=== PATIENT | female | born 1995 | race Caucasian/White ===

== ENCOUNTER 2017-02-20 13:10 | Emergency (ER) | payer MEDICAID ==
[2017-02-20 13:23] VITALS: BP 133/68
[2017-02-20] MEDS ORDERED: Ondansetron 4 MG/2 ML SDV IVPUSH STA (13:53)
[2017-02-20] MEDS ORDERED: Sodium Chloride 0.9% 1,000 ML IV ONE (13:53)
[2017-02-20 14:22] LABS: CHLORIDE,CL 104 mEq/L (98-106); SODIUM,NA 141 mEq/L (136-145)
--- NOTE | 2017-02-20 14:35 | EDM.PDOC ---
ED HPI GENERAL MEDICAL PROBLEM - General Chief Complaint: General Stated Complaint: back pain, leg pain Time Seen by Provider: 02/20/17 13:36 Source of Information: Reports: Patient History Limitations: Reports: No limitations - History of Present Illness INITIAL COMMENTS - FREE TEXT/NARRATIVE: This patient is a 21 year old female that presents to the ER. Patient reports that since Thursday she has had RLE pain in her calf, abdominal pain, back pain, mild chest pain, lightheadedness, dysuria. Patient reports that she is about 2 weeks post vaginal delivery without complications. She reports that she saw her IMPORT CLERK about 1 week ago and was having vaginal bleeding with clots so was put on a medication to help slow this down. Patient reports that this medication has helped, she is still having bleeding, but has significantly decreased. Patient reports her next appointment with her OB is in March. Patient reports she called her OB and was instructed to come to the ER to be evaluated for a possible blood clot. The patient does not appear to be in acute distress. She is sitting up in the stretcher, talking in complete and full sentences without any difficulty. She denies escalante, soa, v, d, f, pelvic pain. Onset Date: 02/16/17 Duration: Day(s): (4) Location: Reports: chest, back, lower extremity, right Quality: Reports: Ache Severity: mild Improves with: Reports: None Worsens with: Reports: None Associated Symptoms: Reports: chest pain, nausea/vomiting, shortness of breath. Denies: confusion, cough, cough w sputum, diaphoresis, fever/chills, headaches , loss of appetite, malaise, rash, seizure, syncope, weakness Back Pain Score (Numeric/FACES): 8 Right Leg Pain Score (Numeric/FACES): 5 - Related Data Allergies Allergy/AdvReac Type Severity Reaction Status Date / Time clindamycin Allergy Mild Stomach Verified 02/20/17 13:23 Ache amoxicillin trihydrate Allergy Stomach Verified 02/20/17 13:23 [From Augmentin] Ache ciprofloxacin [From Cipro] Allergy Vomiting Verified 02/20/17 13:23 ciprofloxacin HCl Allergy Vomiting Verified 02/20/17 13:23 [From Cipro] metronidazole Allergy Nausea Verified 02/20/17 13:23 potassium clavulanate Allergy Stomach Verified 02/20/17 13:23 [From Augmentin] Ache sulfamethoxazole Allergy Vomiting Verified 02/20/17 13:23 [From Bactrim] trimethoprim [From Bactrim] Allergy Vomiting Verified 02/20/17 13:23 doxycycline AdvReac Vomiting Verified 02/20/17 13:23 doxycycline calcium AdvReac Vomiting Verified 02/20/17 13:23 [From Vibramycin] doxycycline hyclate AdvReac Vomiting Verified 02/20/17 13:23 [From Vibramycin] doxycycline monohydrate AdvReac Vomiting Verified 02/20/17 13:23 [From Vibramycin] Home Meds: Home Meds Ferrous Sulfate 1 tab PO DAILY 12/06/16 [History] Vit with Ca/FA/Iron [ Plus Iron] 1 tab PO DAILY 12/06/16 [ History] Acetaminophen [Tylenol] 650 mg PO Q6H PRN #0 tablet 02/10/17 [Rx] Ibuprofen [IJD: Ibuprofen] 600 mg PO Q8H PRN #30 tablet 02/10/17 [Rx] Citalopram Hydrobromide [Celexa] 10 mg PO DAILY 02/20/17 [History] Past Medical History - Past Health History Medical/Surgical History: Denies Medical/Surgical History Other HEENT History: tonsilitis Gastrointestinal History: Reports: Chronic constipation, Hemorrhoids Other Gastrointestinal History: fissures IMPORT CLERK History: Reports: , Other (see below) Other OB/BYN History: Hx ovarian cysts, recent of boy on 02/08/17 Musculoskeletal History: Reports: RA Other Musculoskeletal History: juvenile RA Psychiatric History: Reports: Depression Other Endocrine/Metabolic History: prediabetic Hematologic History: Reports: Anemia Dermatologic History: Reports: Eczema Other Dermatologic History: dermatitis - Infectious Disease History Infectious Disease History: Reports: Chicken pox Social & Family History - Family History Family Medical History: Noncontributory - Tobacco Use Smoking Status *Q: Never Smoker Years of Tobacco use: 2 Packs/Tins Daily: 0.5 Used Tobacco, but Quit: No Month Tobacco Last Used: QUIT 2 YEARS AGO Second Hand Smoke Exposure: No - Caffeine Use Caffeine Use: Reports: None - Alcohol Use Days Per Week of Alcohol Use: 0 Number of Drinks Per Day: 1 Total Drinks Per Week: 0 - Recreational Drug Use Recreational Drug Use: No - Living Situation & Occupation Living situation: Reports: with family, single Occupation: employed ([employer]) ED ROS GENERAL - Review of Systems Review Of Systems: See Below Constitutional: Reports: no symptoms HEENT: Reports: No symptoms Respiratory: Reports: No Symptoms Cardiovascular: Reports: Chest pain, Lightheadedness Endocrine: Reports: no symptoms GI/Abdominal: Reports: Nausea : Reports: dysuria, other (back pain) Musculoskeletal: Reports: no symptoms Skin: Reports: no symptoms Neurological: Reports: No Symptoms Psychiatric: Reports: No symptoms Hematologic/Lymphatic: Reports: no symptoms Immunologic: Reports: no symptoms ED EXAM, GENERAL - Physical Exam Exam: See Below Exam Limited By: No limitations General Appearance: alert, WD/WN, no apparent distress Eye Exam: bilateral eye: normal inspection, PERRL Ears: normal external exam, normal canal, hearing grossly normal, normal TMs Ear Exam: bilateral ear: auricle normal, canal normal, TM normal Nose: normal inspection, normal mucosa, no blood Throat/Mouth: Normal inspection, Normal lips, Normal teeth, Normal gums, Normal oropharynx, Normal voice, No airway compromise Head: atraumatic, normocephalic Neck: normal inspection, supple, non-tender, full range of motion Respiratory/Chest: no respiratory distress, lungs clear, normal breath sounds, no accessory muscle use, chest non-tender (RN Dalia at bedside. ) Cardiovascular: normal peripheral pulses, regular rate, rhythm, no edema, no gallop, no JVD, no murmur, no rub Peripheral Pulses: 2+: radial (L), radial (R), posterior tibial (L), posterior tibial (R), dorsalis pedis (L), dorsalis pedis (R) GI/Abdominal: soft, no organomegaly, no distention, tender (mildly difuse, reports still from delivery. No new changes or worsening. Actually improving per patient.) Back Exam: normal inspection, full range of motion, CVA tenderness (L), CVA tenderness (R) Extremities: normal inspection, normal range of motion, non-tender, no pedal edema, normal capillary refill Neurological: alert, oriented Psychiatric: normal affect, normal mood Skin Exam: Warm, Dry, Intact, Normal color, No rash Lymphatic: no adenopathy Course - Vital Signs Last Recorded V/S: Last Vital Signs Temp 98.5 F 02/20/17 13:15 Pulse 59 L 02/20/17 13:15 Resp 20 02/20/17 13:15 BP 133/68 02/20/17 13:15 Pulse Ox 97 02/20/17 13:15 - Orders/Labs/Meds Orders: Active Orders 24 hr Category Date Time Status Ang Chest [CT] Stat Exams 02/20/17 15:02 Taken VL Duplex Lwr Ext Veins Ltd Rt [US] Stat Exams 02/20/17 13:52 Taken Labs: Laboratory Tests 02/20/17 02/20/17 02/20/17 Range/Units 13:52 13:52 14:00 WBC 14.8 H (5.0-10.0) 10^3/uL RBC 4.18 (4.00-5.50) 10^6/uL Hgb 12.5 (12.0-16.0) g/dL Hct 38.4 (37.0-47.0) % MCV 91.9 (82.0-94.0) fL MCH 29.9 (27.0-32.0) pg MCHC 32.6 L (33.0-38.0) g/dL RDW Coeff of Kike 12.6 (11.0-15.0) % Plt Count 465 H (150-400) 10^3/uL Neut % (Auto) 65.3 (35-85) % Lymph % (Auto) 27.4 (10-55) % [place] % (Auto) 5.3 (0-16) % Eos % (Auto) 1.8 (0-5) % Baso % (Auto) 0.2 (0-3) % Neut # (Auto) 9.65 H (1.80-7.00) 10^3/uL Lymph # (Auto) 4.04 (1.00-4.80) 10^3/uL [place] # (Auto) 0.78 (0.00-0.80) 10^3/uL Eos # (Auto) 0.27 (0.00-0.45) 10^3/uL Baso # (Auto) 0.03 10^3/uL D-Dimer, Quantitative 0.58 H (0.00-0.50) Sodium 141 (136-145) mEq/L Potassium 4.0 (3.5-5.0) mEq/L Chloride 104 (98-106) mEq/L Carbon Dioxide 26 (21-32) mmol/L BUN 11 D (7-18) mg/dL Creatinine 0.7 (0.6-1.0) mg/dL Est Cr Clr Drug Dosing 118.01 mL/min Estimated GFR (MDRD) > 60 (>=60) mL/min Glucose 86 (75-99) mg/dL Calcium 9.3 (8.4-10.1) mg/dL Total Bilirubin 0.3 (0.0-1.0) mg/dL AST 14 L (15-37) U/L ALT 18 (12-78) U/L Alkaline Phosphatase 131 H (46-116) U/L Total Protein 7.2 (6.4-8.2) g/dL Albumin 3.5 (3.4-5.0) g/dL Urine Color (YELLOW) Urine Appearance (CLEAR) Urine pH (4.5-8.0) Ur Specific [place] (1.003-1.020) Urine Protein (NEGATIVE) mg/dL Urine Glucose (UA) (NEGATIVE) mg/dL Urine Ketones (NEGATIVE) mg/dL Urine Occult Blood (NEGATIVE) Urine Nitrite (NEGATIVE) Urine Bilirubin (NEGATIVE) Urine Urobilinogen (0.2-1.0) EU/dL Ur Leukocyte Esterase (NEGATIVE) Urine RBC (0-5) /HPF Urine WBC (0-5) /HPF Ur Squamous Epith Cells (NOT SEEN) /HPF Urine Bacteria (NOT SEEN) /HPF 02/20/17 Range/Units 14:00 WBC (5.0-10.0) 10^3/uL RBC (4.00-5.50) 10^6/uL Hgb (12.0-16.0) g/dL Hct (37.0-47.0) % MCV (82.0-94.0) fL MCH (27.0-32.0) pg MCHC (33.0-38.0) g/dL RDW Coeff of Kike (11.0-15.0) % Plt Count (150-400) 10^3/uL Neut % (Auto) (35-85) % Lymph % (Auto) (10-55) % [place] % (Auto) (0-16) % Eos % (Auto) (0-5) % Baso % (Auto) (0-3) % Neut # (Auto) (1.80-7.00) 10^3/uL Lymph # (Auto) (1.00-4.80) 10^3/uL [place] # (Auto) (0.00-0.80) 10^3/uL Eos # (Auto) (0.00-0.45) 10^3/uL Baso # (Auto) 10^3/uL D-Dimer, Quantitative (0.00-0.50) Sodium (136-145) mEq/L Potassium (3.5-5.0) mEq/L Chloride (98-106) mEq/L Carbon Dioxide (21-32) mmol/L BUN (7-18) mg/dL Creatinine (0.6-1.0) mg/dL Est Cr Clr Drug Dosing mL/min Estimated GFR (MDRD) (>=60) mL/min Glucose (75-99) mg/dL Calcium (8.4-10.1) mg/dL Total Bilirubin (0.0-1.0) mg/dL AST (15-37) U/L ALT (12-78) U/L Alkaline Phosphatase (46-116) U/L Total Protein (6.4-8.2) g/dL Albumin (3.4-5.0) g/dL Urine Color Light yellow (YELLOW) Urine Appearance Clear (CLEAR) Urine pH 7.0 (4.5-8.0) Ur Specific [place] 1.011 (1.003-1.020) Urine Protein Negative (NEGATIVE) mg/dL Urine Glucose (UA) Negative (NEGATIVE) mg/dL Urine Ketones Negative (NEGATIVE) mg/dL Urine Occult Blood Small H (NEGATIVE) Urine Nitrite Negative (NEGATIVE) Urine Bilirubin Negative (NEGATIVE) Urine Urobilinogen 0.2 (0.2-1.0) EU/dL Ur Leukocyte Esterase Moderate H (NEGATIVE) Urine RBC 5-10 H (0-5) /HPF Urine WBC 5-10 H (0-5) /HPF Ur Squamous Epith Cells Few H (NOT SEEN) /HPF Urine Bacteria Occasional H (NOT SEEN) /HPF Meds: Medications Discontinued Medications Generic Name Dose Route Start Last Admin Trade Name Freq PRN Reason Stop Dose Admin Ceftriaxone Sodium 1 gm 02/20/17 15:05 02/20/17 15:55 Rocephin IVPUSH 02/20/17 15:06 1 gm ONETIME ONE Administration Sodium Chloride 1,000 mls @ 1,000 mls/hr 02/20/17 13:53 02/20/17 14:30 Normal Saline IV 02/20/17 14:52 1,000 mls/hr .BOLUS ONE Administration Ondansetron HCl 4 mg 02/20/17 13:53 02/20/17 14:25 Zofran IVPUSH 02/20/17 13:54 4 mg NOW STA Administration - Radiology Interpretation Free Text/Narrative:: CT Angio Chest: No PEs, negative per radiologist. Venous Right leg: No DVT. CT Results Date: 02/20/17 CT Results Time: 17:00 Departure - Departure Time of Disposition: 17:19 Disposition: Home, Self-Care 01 Condition: good Clinical Impression: UTI, Urinary tract infectious disease Instructions: Urinary Tract Infection, Adult Referrals: Leeanne Mendez MD [Primary Care Provider] - Forms: ED Department Discharge Additional Instructions: Followup with your primary care provider and IMPORT CLERK Return to the ER for worsening of condition or any emergent concerns Increase fluids Macrobid 100mg 1 pill twice a day for 7 days #14 no refill - My Orders Last 24 Hours: My Active Orders 02/20/17 13:52 VL Duplex Lwr Ext Veins Ltd Rt [US] Stat 02/20/17 15:02 Ang Chest [CT] Stat - Assessment/Plan Last 24 Hours: My Active Orders 02/20/17 13:52 VL Duplex Lwr Ext Veins Ltd Rt [US] Stat 02/20/17 15:02 Ang Chest [CT] Stat Plan: PLEASE SEE RN NOTE FOR PFSH.
[2017-02-20] MEDS ORDERED: cefTRIAXone 1 GM Vial IVPUSH ONE (15:05)
== END 2017-02-20 17:35 | disposition home or self-care (01) ==
LOC: CC.ED 13:10
DX: N39.0 Urinary tract infection, site not specified (principal); F32.9 Major depressive disorder, single episode, unspecified; Z88.1 Allergy status to other antibiotic agents; Z88.8 Allergy status to other drugs, medicaments and biological substances; Z88.2 Allergy status to sulfonamides; Z79.899 Other long term (current) drug therapy
CPT/HCPCS: 36415; 71275; 80053; 81001; 85025; 85379; 93971; 96361; 96374; 96375; 99284; J0696; J2405; J7030; Q9967

== ENCOUNTER 2017-06-10 20:39 | Emergency (ER) | payer MEDICAID ==
[2017-06-10 20:46] VITALS: BP 140/76
--- NOTE | 2017-06-10 20:50 | EDM.PDOC ---
ED HPI GENERAL MEDICAL PROBLEM - General Chief Complaint: Lower Extremity Injury/Pain Stated Complaint: R ankle injury Time Seen by Provider: 06/10/17 20:40 Source of Information: Reports: Patient History Limitations: Reports: No Limitations - History of Present Illness INITIAL COMMENTS - FREE TEXT/NARRATIVE: Pt was walking and stepped off a ledge and felt her right ankle pop. Hasn't been able to bear weight on it since. Pain is in foot and into the right ankle laterally. DId have it wrapped when coming in. Mild swelling noted at this time. able to move toes but does cause pain. No open area noted. No bruising at this time. Onset: Sudden Location: Reports: Lower Extremity, Right Quality: Reports: Sharp, Throbbing Worsens with: Reports: Movement Associated Symptoms: Reports: No Other Symptoms Right Ankle Pain Score (Numeric/FACES): 9 - Related Data Allergies Allergy/AdvReac Type Severity Reaction Status Date / Time clindamycin Allergy Mild Stomach Verified 06/10/17 20:41 Ache amoxicillin trihydrate Allergy Stomach Verified 06/10/17 20:41 [From Augmentin] Ache ciprofloxacin [From Cipro] Allergy Vomiting Verified 06/10/17 20:41 ciprofloxacin HCl Allergy Vomiting Verified 06/10/17 20:41 [From Cipro] metronidazole Allergy Nausea Verified 06/10/17 20:41 potassium clavulanate Allergy Stomach Verified 06/10/17 20:41 [From Augmentin] Ache sulfamethoxazole Allergy Vomiting Verified 06/10/17 20:41 [From Bactrim] trimethoprim [From Bactrim] Allergy Vomiting Verified 06/10/17 20:41 doxycycline AdvReac Vomiting Verified 06/10/17 20:41 doxycycline calcium AdvReac Vomiting Verified 06/10/17 20:41 [From Vibramycin] doxycycline hyclate AdvReac Vomiting Verified 06/10/17 20:41 [From Vibramycin] doxycycline monohydrate AdvReac Vomiting Verified 06/10/17 20:41 [From Vibramycin] Home Meds: Home Meds Ferrous Sulfate 1 tab PO DAILY 12/06/16 [History] Vit with Ca/FA/Iron [ Plus Iron] 1 tab PO DAILY 12/06/16 [ History] Acetaminophen [Tylenol] 650 mg PO Q6H PRN #0 tablet 02/10/17 [Rx] Ibuprofen [IJD: Ibuprofen] 600 mg PO Q8H PRN #30 tablet 02/10/17 [Rx] Citalopram Hydrobromide [Celexa] 10 mg PO DAILY 02/20/17 [History] Past Medical History - Past Health History Medical/Surgical History: Denies Medical/Surgical History Other HEENT History: tonsilitis Gastrointestinal History: Reports: Chronic Constipation, Hemorrhoids Other Gastrointestinal History: fissures [employer]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: , Other (See Below) Other OB/BYN History: Hx ovarian cysts, recent of boy on 02/08/17 Musculoskeletal History: Reports: RA Other Musculoskeletal History: juvenile RA Psychiatric History: Reports: Depression Other Endocrine/Metabolic History: prediabetic Hematologic History: Reports: Anemia Dermatologic History: Reports: Eczema Other Dermatologic History: dermatitis - Infectious Disease History Infectious Disease History: Reports: Chicken Pox Social & Family History - Family History Family Medical History: Noncontributory - Tobacco Use Smoking Status *Q: Never Smoker Years of Tobacco use: 2 Packs/Tins Daily: 0.5 Used Tobacco, but Quit: No Month Tobacco Last Used: QUIT 2 YEARS AGO Second Hand Smoke Exposure: No - Caffeine Use Caffeine Use: Reports: None - Alcohol Use Days Per Week of Alcohol Use: 0 Number of Drinks Per Day: 1 Total Drinks Per Week: 0 - Recreational Drug Use Recreational Drug Use: No - Living Situation & Occupation Living situation: Reports: with Family, Single Occupation: Employed Review of Systems - Review of Systems Review Of Systems: See Below Constitutional: Reports: No Symptoms Musculoskeletal: Reports: Leg Pain, Foot Pain Skin: Denies: Bruising, Wound ED EXAM, GENERAL - Physical Exam Exam: See Below Exam Limited By: No Limitations General Appearance: Alert, WD/WN, Moderate Distress Peripheral Pulses: 4+: Posterior Tibial (R), Dorsalis Pedis (R) Extremities: No Pedal Edema, Other (Has increase in pain with any movement. ) Course - Vital Signs Last Recorded V/S: Last Vital Signs Temp 96.3 F 06/10/17 20:42 Pulse 90 06/10/17 20:42 Resp 18 06/10/17 20:42 BP 140/76 06/10/17 20:42 Pulse Ox 97 06/10/17 20:42 - Orders/Labs/Meds Orders: Active Orders 24 hr Category Date Time Status Ankle Min 3V Rt [CR] Stat Exams 06/10/17 20:41 Ordered - Re-Assessments/Exams Free Text/Narrative Re-Assessment/Exam: 06/10/17 21:09 xray results discussed with pt as no acute fracture or dislocation noted. Departure - Departure Time of Disposition: 21:09 Disposition: Home, Self-Care 01 Condition: Good Clinical Impression: Right ankle sprain Qualifiers: Encounter type: initial encounter Involved ligament of ankle: unspecified ligament Qualified Code(s): S93.401A - Sprain of unspecified ligament of right ankle, initial encounter - Discharge Information Instructions: Ankle Sprain, [id number] Forms: ED Department Discharge Additional Instructions: Wear air cast for comfort and to help immobilize it . Wear sock under the air cast so the skin doesn't get irritated Ice to the area. elevate ankle to help with swelling Tylenol or advil to help with pain - Problem List & Annotations (1) Right ankle sprain SNOMED Code(s): 99909716 Code(s): S93.401A - SPRAIN OF UNSPECIFIED LIGAMENT OF RIGHT ANKLE, INIT ENCNTR Status: Acute Priority: High Current Visit: Yes Qualifiers: Encounter type: initial encounter Involved ligament of ankle: unspecified ligament Qualified Code(s): S93.401A - Sprain of unspecified ligament of right ankle, initial encounter - Problem List Review Problem List Initiated/Reviewed/Updated: Yes - My Orders Last 24 Hours: My Active Orders 06/10/17 20:41 Ankle Min 3V Rt [CR] Stat - Assessment/Plan Last 24 Hours: My Active Orders 06/10/17 20:41 Ankle Min 3V Rt [CR] Stat
== END 2017-06-10 21:25 | disposition home or self-care (01) ==
LOC: CC.ED 20:39
DX: S93.401A Sprain of unspecified ligament of right ankle, initial encounter (principal); M06.9 Rheumatoid arthritis, unspecified; D64.9 Anemia, unspecified; Z88.1 Allergy status to other antibiotic agents; Z88.8 Allergy status to other drugs, medicaments and biological substances; Z88.2 Allergy status to sulfonamides; Z79.899 Other long term (current) drug therapy; X50.9XXA Other and unspecified overexertion or strenuous movements or postures, initial encounter
CPT/HCPCS: 73610-RT; 99283

== ENCOUNTER 2017-11-07 14:30 | Emergency (ER) | payer MEDICAID ==
[2017-11-07] MEDS ORDERED: Cefuroxime 250 MG Tab PO ONE (14:31)
[2017-11-07] MEDS ORDERED: predniSONE 20 MG Tab PO ONE (14:31)
[2017-11-07 14:36] VITALS: BP 137/61
--- NOTE | 2017-11-07 14:43 | EDM.PDOC ---
ED HPI GENERAL MEDICAL PROBLEM - General Chief Complaint: General Stated Complaint: body aches, cough, fever Time Seen by Provider: 11/07/17 14:37 Source of Information: Reports: Patient History Limitations: Reports: No Limitations - History of Present Illness INITIAL COMMENTS - FREE TEXT/NARRATIVE: Rand is a 22 year old female who presents to the clinic with complaints of body aches and cough. She reports a productive cough of green phlegm. She reports she first started feeling ill on . She reports that she feels "like her muscles are going to rip apart." Reports her body aches have worsened. Does not report fever at home, however she is 99.9 deg F in ED. Denies any chest pain, shortness of breath. Does report fatigue. She reports she has been eating and drinking ok. Does have sick family members at home as well. Has been taking OTC cold medications and Tylenol without relief. Onset Date: 11/05/17 Duration: Getting Worse Location: Reports: Chest, Generalized Quality: Reports: Ache Associated Symptoms: Reports: Cough, cough w sputum, Headaches, Weakness. Denies: Confusion, Chest Pain, Diaphoresis, Fever/Chills, Loss of Appetite, Malaise, Nausea/Vomiting, Rash, Seizure, Shortness of Breath, Syncope Treatments BURR PICKER: Reports: Acetaminophen, Other Medication(s) (decongestants) Generalized Pain Score (Numeric/FACES): 3 - Related Data Allergies Allergy/AdvReac Type Severity Reaction Status Date / Time clindamycin Allergy Mild Stomach Verified 11/07/17 14:37 Ache amoxicillin trihydrate Allergy Stomach Verified 11/07/17 14:37 [From Augmentin] Ache ciprofloxacin [From Cipro] Allergy Vomiting Verified 11/07/17 14:37 ciprofloxacin HCl Allergy Vomiting Verified 11/07/17 14:37 [From Cipro] metronidazole Allergy Nausea Verified 11/07/17 14:37 potassium clavulanate Allergy Stomach Verified 11/07/17 14:37 [From Augmentin] Ache sulfamethoxazole Allergy Vomiting Verified 11/07/17 14:37 [From Bactrim] trimethoprim [From Bactrim] Allergy Vomiting Verified 11/07/17 14:37 doxycycline AdvReac Vomiting Verified 11/07/17 14:37 doxycycline calcium AdvReac Vomiting Verified 11/07/17 14:37 [From Vibramycin] doxycycline hyclate AdvReac Vomiting Verified 11/07/17 14:37 [From Vibramycin] doxycycline monohydrate AdvReac Vomiting Verified 11/07/17 14:37 [From Vibramycin] Home Meds: Home Meds Acetaminophen [Tylenol] 650 mg PO Q6H PRN #0 tablet 02/10/17 [Rx] Ibuprofen [IJD: Ibuprofen] 600 mg PO Q8H PRN #30 tablet 02/10/17 [Rx] Citalopram Hydrobromide [Celexa] 20 mg PO DAILY 02/20/17 [History] Cefuroxime Axetil [Cefuroxime] 250 mg PO Q12H 3 Days #6 tablet 11/07/17 [Rx] Desogestrel-Ethinyl Estradiol [Juleber 28 Day Tablet] 1 each PO DAILY 11/07/17 [ History] Prednisone [IJD: predniSONE] 20 mg PO DAILY #5 tab 11/07/17 [Rx] Past Medical History - Past Health History Medical/Surgical History: Denies Medical/Surgical History Other HEENT History: tonsilitis Gastrointestinal History: Reports: Chronic Constipation, Hemorrhoids Other Gastrointestinal History: fissures 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: , Other (See Below) Other OB/BYN History: Hx ovarian cysts, recent of boy on 02/08/17 Musculoskeletal History: Reports: RA Other Musculoskeletal History: juvenile RA Psychiatric History: Reports: Depression Other Endocrine/Metabolic History: prediabetic Hematologic History: Reports: Anemia Dermatologic History: Reports: Eczema Other Dermatologic History: dermatitis - Infectious Disease History Infectious Disease History: Reports: Chicken Pox Social & Family History - Family History Family Medical History: Noncontributory - Tobacco Use Smoking Status *Q: Never Smoker Years of Tobacco use: 2 Packs/Tins Daily: 0.5 Used Tobacco, but Quit: No Month Tobacco Last Used: QUIT 2 YEARS AGO Second Hand Smoke Exposure: No - Caffeine Use Caffeine Use: Reports: None - Alcohol Use Days Per Week of Alcohol Use: 0 Number of Drinks Per Day: 1 Total Drinks Per Week: 0 - Recreational Drug Use Recreational Drug Use: No - Living Situation & Occupation Living situation: Reports: with Family, Single Occupation: Employed ED ROS GENERAL - Review of Systems Review Of Systems: See Below Constitutional: Reports: Fever, Chills, Malaise, Weakness, Fatigue Respiratory: Reports: Cough, Sputum. Denies: Shortness of Breath Cardiovascular: Denies: Chest Pain, Dyspnea on Exertion, Lightheadedness Endocrine: Reports: Fatigue GI/Abdominal: Reports: No Symptoms : Reports: No Symptoms Musculoskeletal: Reports: Other (myalgias) Skin: Reports: No Symptoms Neurological: Reports: Headache. Denies: Dizziness Psychiatric: Reports: No Symptoms ED EXAM, GENERAL - Physical Exam Exam: See Below Exam Limited By: No Limitations General Appearance: Alert, WD/WN, No Apparent Distress Eye Exam: Bilateral Eye: PERRL Ears: Normal External Exam, Normal Canal, Hearing Grossly Normal, Normal TMs Ear Exam: Bilateral Ear: TM normal Nose: No Blood, Nasal Swelling, Clear Rhinorrhea. No: Nasal Flaring Throat/Mouth: Normal Inspection, Normal Lips, Normal Teeth, Normal Gums, Normal Oropharynx, Normal Voice, No Airway Compromise Head: Atraumatic, Normocephalic Neck: Normal Inspection, Supple, Non-Tender, Full Range of Motion Respiratory/Chest: No Respiratory Distress, Lungs Clear, Normal Breath Sounds, No Accessory Muscle Use, Chest Non-Tender Cardiovascular: Normal Peripheral Pulses, Regular Rate, Rhythm, No Edema, No Gallop, No JVD, No Murmur, No Rub Extremities: Normal Inspection, Normal Range of Motion, Non-Tender, Normal Capillary Refill, No Pedal Edema Neurological: Alert, Oriented, CN II-XII Intact, Normal Cognition, Normal Gait, Normal Reflexes, No Motor/Sensory Deficits Psychiatric: Normal Affect, Normal Mood Skin Exam: Warm, Dry, Intact, Normal Color, No Rash Lymphatic: No Adenopathy Course - Vital Signs Last Recorded V/S: Last Vital Signs Temp 99.9 F 11/07/17 14:32 Pulse 98 11/07/17 14:32 Resp 16 11/07/17 14:32 BP 137/61 11/07/17 14:32 Pulse Ox 97 11/07/17 14:32 - Orders/Labs/Meds Meds: Medications Discontinued Medications Generic Name Dose Route Start Last Admin Trade Name Freq PRN Reason Stop Dose Admin Cefuroxime Axetil 2 packet 11/07/17 15:28 11/07/17 15:45 Take Home: Cefuroxime 250 Mg, 2 Tab Pack PO 11/07/17 15:29 2 packet ONETIME ONE Administration Prednisone 1 packet 11/07/17 15:28 11/07/17 15:45 Take Home: Prednisone 20 Mg, 2 Tab Pack PO 11/07/17 15:29 1 packet ONETIME ONE Administration - Re-Assessments/Exams Free Text/Narrative Re-Assessment/Exam: 11/07/17 15:24 Influenza Negative. Departure - Departure Time of Disposition: 15:24 Disposition: Home, Self-Care 01 Condition: Fair Clinical Impression: Bronchiolitis - Discharge Information Prescriptions: Cefuroxime Axetil [Cefuroxime] 250 mg PO Q12H 3 Days #6 tablet Prednisone [IJD: predniSONE] 20 mg PO DAILY #5 tab Instructions: Cough, Adult, [id number], Acute Bronchitis, [id number] Referrals: Leeanne Mendez MD [Primary Care Provider] - Forms: ED Department Discharge Additional Instructions: Meds as directed Push fluids Rest as much as possible Tylenol or ibuprofen as needed for fever or discomfort Follow up with PCP if symptoms worsen or do not improve
[2017-11-07] MEDS ORDERED: Take Home: Cefuroxime 250 MG Tab, 2 Tab Pack PO ONE (15:28)
[2017-11-07] MEDS ORDERED: Take Home: predniSONE 20 MG, 2 Tab Pack PO ONE (15:28)
== END 2017-11-07 15:40 | disposition home or self-care (01) ==
LOC: CC.ED 14:30
DX: J21.9 Acute bronchiolitis, unspecified (principal); Z88.1 Allergy status to other antibiotic agents; Z88.8 Allergy status to other drugs, medicaments and biological substances; Z88.2 Allergy status to sulfonamides; Z79.899 Other long term (current) drug therapy
CPT/HCPCS: 87804; 99283; A9270

== ENCOUNTER 2018-05-25 14:45 | Emergency (ER) | payer MEDICAID ==
[2018-05-25 15:10] VITALS: BP 143/71
--- NOTE | 2018-05-25 15:10 | EDM.PDOC ---
ED HPI GENERAL MEDICAL PROBLEM - General Chief Complaint: General Stated Complaint: LACERATION Time Seen by Provider: 05/25/18 15:00 Source of Information: Reports: Patient History Limitations: Reports: No Limitations - History of Present Illness INITIAL COMMENTS - FREE TEXT/NARRATIVE: was slicing carrots with a mandolin when she cut her right index finger with the mandolin. It was bleeding and she did put pressure on it prior to arriving in the ER. no bleeding noted when seen Does complain of pain to the area. Tetanus is current. Onset: Today Location: Reports: Other (rigth index finger.) Quality: Reports: Throbbing Right Hand Pain Score (Numeric/FACES): 6 - Related Data Allergies Allergy/AdvReac Type Severity Reaction Status Date / Time clindamycin Allergy Mild Stomach Verified 05/25/18 14:51 Ache amoxicillin trihydrate Allergy Stomach Verified 05/25/18 14:51 [From Augmentin] Ache ciprofloxacin [From Cipro] Allergy Vomiting Verified 05/25/18 14:51 ciprofloxacin HCl Allergy Vomiting Verified 05/25/18 14:51 [From Cipro] metronidazole Allergy Nausea Verified 05/25/18 14:51 potassium clavulanate Allergy Stomach Verified 05/25/18 14:51 [From Augmentin] Ache sulfamethoxazole Allergy Vomiting Verified 05/25/18 14:51 [From Bactrim] trimethoprim [From Bactrim] Allergy Vomiting Verified 05/25/18 14:51 doxycycline AdvReac Vomiting Verified 05/25/18 14:51 doxycycline calcium AdvReac Vomiting Verified 05/25/18 14:51 [From Vibramycin] doxycycline hyclate AdvReac Vomiting Verified 05/25/18 14:51 [From Vibramycin] doxycycline monohydrate AdvReac Vomiting Verified 05/25/18 14:51 [From Vibramycin] Home Meds: Home Meds Acetaminophen [Tylenol] 650 mg PO Q6H PRN #0 tablet 02/10/17 [Rx] Ibuprofen [IJD: Ibuprofen] 600 mg PO Q8H PRN #30 tablet 02/10/17 [Rx] Desogestrel-Ethinyl Estradiol [Juleber 28 Day Tablet] 1 each PO DAILY 11/07/17 [ History] Past Medical History - Past Health History Medical/Surgical History: Denies Medical/Surgical History Other HEENT History: tonsilitis Gastrointestinal History: Reports: Chronic Constipation, Hemorrhoids Other Gastrointestinal History: fissures 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: , Other (See Below) Other NEWS PRODUCER History: Hx ovarian cysts, recent of boy on 02/08/17 Musculoskeletal History: Reports: RA Other Musculoskeletal History: juvenile RA Psychiatric History: Reports: Depression Other Endocrine/Metabolic History: prediabetic Hematologic History: Reports: Anemia Dermatologic History: Reports: Eczema Other Dermatologic History: dermatitis - Infectious Disease History Infectious Disease History: Reports: Chicken Pox Social & Family History - Family History Family Medical History: Noncontributory - Caffeine Use Caffeine Use: Reports: None - Living Situation & Occupation Living situation: Reports: with Family, Single Occupation: Employed ED ROS GENERAL - Review of Systems Review Of Systems: See Below Skin: Reports: Wound ED EXAM, GENERAL - Physical Exam Exam: See Below Exam Limited By: No Limitations General Appearance: Alert, WD/WN, No Apparent Distress Skin Exam: Warm, Dry, Wound/Incision (at the tip of the right index finger she does have a small laceration that is not gapping. It is clean and no bleeding noted. It was covered with steri strip.) Course - Vital Signs Last Recorded V/S: Last Vital Signs Temp 98.2 F 05/25/18 15:00 Pulse 76 05/25/18 15:00 Resp 18 05/25/18 15:00 BP 143/71 H 05/25/18 15:00 Pulse Ox 98 05/25/18 15:00 Departure - Departure Time of Disposition: 15:07 Disposition: Home, Self-Care 01 Condition: Good Clinical Impression: Laceration of finger of right hand Qualifiers: Encounter type: initial encounter Finger: index finger Damage to nail status: without damage Foreign body presence: without foreign body Qualified Code(s): S61.210A - Laceration without foreign body of right index finger without damage to nail, initial encounter - Discharge Information *PRESCRIPTION DRUG MONITORING PROGRAM REVIEWED*: Not Applicable *COPY OF PRESCRIPTION DRUG MONITORING REPORT IN PATIENT JOSH: Not Applicable Instructions: Wound Care, Adult Referrals: PCP,None [Primary Care Provider] - Forms: ED Department Discharge Additional Instructions: Keep steri strips on as long as possible. Replace them if not healed when they fall off Need to keep it dry and clean Wear gloves if getting hands wet or dirty Recheck in the clinic if any new concerns. - Problem List & Annotations (1) Laceration of finger of right hand SNOMED Code(s): 104314405 Code(s): S61.219A - LACERATION W/O FB OF UNSP FINGER W/O DAMAGE TO NAIL, INIT Status: Acute Priority: High Qualifiers: Encounter type: initial encounter Finger: index finger Damage to nail status: without damage Foreign body presence: without foreign body Qualified Code(s): S61.210A - Laceration without foreign body of right index finger without damage to nail, initial encounter - Problem List Review Problem List Initiated/Reviewed/Updated: Yes
== END 2018-05-25 15:15 | disposition home or self-care (01) ==
LOC: CC.ED 14:45
DX: S61.210A Laceration without foreign body of right index finger without damage to nail, initial encounter (principal); Z88.1 Allergy status to other antibiotic agents; Z88.8 Allergy status to other drugs, medicaments and biological substances; W45.8XXA Other foreign body or object entering through skin, initial encounter
CPT/HCPCS: 99282

== ENCOUNTER 2022-05-25 20:49 | Emergency (ER) | payer BC, MEDICAID, OTHER ==
[2022-05-25 20:53] VITALS: BP 142/76; PULSE 66
== END 2022-05-25 22:00 | disposition home or self-care (01) ==
LOC: CC.ED 20:49
DX: S52.501A Unspecified fracture of the lower end of right radius, initial encounter for closed fracture (principal); Z88.1 Allergy status to other antibiotic agents; Z88.0 Allergy status to penicillin; Z88.8 Allergy status to other drugs, medicaments and biological substances; W18.30XA Fall on same level, unspecified, initial encounter
CPT/HCPCS: 29125; 73110-RT; 99283; 99283-25

== ENCOUNTER 2024-11-26 10:01 | Emergency (ER) | payer BC, MEDICAID, OTHER ==
[2024-11-26 11:02] VITALS: BP 122/66; PULSE 108
== END 2024-11-26 11:30 | disposition home or self-care (01) ==
LOC: CC.ED 10:01
DX: O99.512 Diseases of the respiratory system complicating pregnancy, second trimester (principal); J32.9 Chronic sinusitis, unspecified; B97.89 Other viral agents as the cause of diseases classified elsewhere; Z79.899 Other long term (current) drug therapy; Z88.8 Allergy status to other drugs, medicaments and biological substances; Z88.2 Allergy status to sulfonamides; Z88.0 Allergy status to penicillin; Z88.1 Allergy status to other antibiotic agents; Z3A.19 19 weeks gestation of pregnancy
CPT/HCPCS: 87428-QW; 99284